=== PATIENT | male | born 1960 | race Caucasian/White ===

== ENCOUNTER → 2024-06-02 | Outpatient (CLI) | payer BC ==
--- NOTE | 2024-06-02 14:33 | XR ---
EXAMINATION TYPE: XR hand complete bilateral DATE OF EXAM: 06/02/2024 COMPARISON: None at this location. HISTORY: Rheumatoid arthritis TECHNIQUE: Three-view bilateral hands FINDINGS: Left hand: There is loss of joint space through the proximal and distal interphalangeal joint spaces. Narrowing of the metacarpal phalangeal joint spaces are evident. Some periarticular erosion may be p resent the distal aspect proximal phalanx middle finger possibly index finger. Soft tissue swelling a t the proximal interphalangeal joint space left middle finger is noted. Right: There is narrowing of the proximal distal interphalangeal joint spaces. Soft tissue swelling i s in the proximal and distal right middle finger joint regions. Some mild periarticular erosions of t he distal portion proximal phalanx middle finger is present. Bilateral hands: No acute fractures or dislocations evident. IMPRESSION: 1. There is some mild periarticular erosions of the proximal interphalangeal joint space distal phal anx bilateral middle fingers. Soft tissue swelling is over these regions. Findings can be compatible with rheumatoid arthritis. 2. Diffuse joint space narrowing to the proximal and distal interphalangeal joint spaces and milder d iffuse narrowing through the metacarpal phalangeal joint spaces. 3. There is some soft tissue swelling over the distal interphalangeal joint space right middle finger
== END | disposition home or self-care (01) ==
LOC: RADXRYALE 09:44
PROVIDERS: ATTEND Internal Medicine Rheumatology
DX: M05.79 Rheumatoid arthritis with rheumatoid factor of multiple sites without organ or systems involvement (principal); M79.89 Other specified soft tissue disorders; M06.9 Rheumatoid arthritis, unspecified